=== PATIENT | female | born 1960 | race Caucasian/White ===

== ENCOUNTER → 2021-01-06 | Outpatient (CLI) | payer OTHER ==
--- NOTE | 2021-01-06 21:32 | MR ---
EXAMINATION TYPE: MR knee RT wo con DATE OF EXAM: 01/06/2021 COMPARISON: Radiographs 12/28/2020. HISTORY: Right knee pain x 2 mos, no trauma TECHNIQUE: Multiplanar, multisequence imaging of the right knee is performed without IV contrast. FINDINGS: MEDIAL MENISCUS: Mild mucoid degeneration without discrete tear is seen. LATERAL MENISCUS: Small horizontal oblique tear of the posterior horn. CRUCIATE LIGAMENTS: The anterior and posterior cruciate ligaments are intact and unremarkable. COLLATERAL LIGAMENTS: The medial collateral ligament and lateral collateral ligament complex are inta ct and unremarkable. EXTENSOR MECHANISM: Visualized quadriceps and patellar tendons are intact. EFFUSION: Small to moderate suprapatellar joint effusion. POPLITEAL CYST: No significant popliteal/carlson cyst. TRICOMPARTMENT SPACES: Moderate narrowing of the patellofemoral joint and mild of the medial and late ral compartments CARTILAGE: Moderate to large near full-thickness chondral defect overlying the patella lateral facet. Otherwise small to moderate partial thickness chondral defect overlying the medial and Lateral compartments. BONE MARROW SIGNAL: No focal abnormal marrow signal is appreciated. OTHER: No additional significant abnormality is appreciated. IMPRESSION: Lateral meniscus posterior horn tear. Small to moderate knee joint effusion. Moderate patellofemoral chondromalacia with near full-thickness chondral defect. Otherwise mild to mo derate chondromalacia elsewhere.
== END | disposition home or self-care (01) ==
LOC: RADMRIMAIN 20:21
PROVIDERS: ATTEND Orthopaedic Surgery
DX: S83.281A Other tear of lateral meniscus, current injury, right knee, initial encounter (principal); M22.41 Chondromalacia patellae, right knee; M25.461 Effusion, right knee

== ENCOUNTER → 2021-01-27 | Outpatient (CLI) | payer OTHER ==
[2021-01-27 16:56] LABS: Basophils # (A) 0.1 k/uL (0-0.2); Basophils % (A) 1 %; Eosinophils # (A) 0.2 k/uL (0-0.7); Eosinophils % (A) 3 %; HCT 42.2 % (34.0-46.0); HGB 13.7 gm/dL (11.4-16.0); Lymphocytes % (A) 35 %; MCHC 32.5 g/dL (31.0-37.0); MCV 92.3 fL (80.0-100.0); Mean Platelet Volume 6.2; Monocytes # (A) 0.3 k/uL (0-1.0); Monocytes % (A) 5 %; Neutrophils # (A) 3.1 k/uL (1.3-7.7); Neutrophils % (A) 54 %; Platelet Count 312 k/uL (150-450); RBC 4.57 m/uL (3.80-5.40); RDW 12.9 % (11.5-15.5); WBC 5.8 k/uL (3.8-10.6)
[2021-01-27 17:07] LABS: Potassium 4.3 mmol/L (3.5-5.1)
== END | disposition home or self-care (01) ==
LOC: LABPAT 16:21
PROVIDERS: ATTEND Orthopaedic Surgery
DX: Z01.812 Encounter for preprocedural laboratory examination (principal); M23.91 Unspecified internal derangement of right knee
CPT/HCPCS: 80051; 85025; 93005

== ENCOUNTER 2021-02-05 10:08 | Day surgery (SDC) | payer OTHER ==
--- NOTE | 2021-02-04 13:48 | HP ---
HISTORY AND PHYSICAL CHIEF COMPLAINT: Right knee pain. 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 She notes progressive medial pain along with intermittent giving way worse with weightbearing activities. It bothers her daily. She rates her pain 5/10. She has had multiple previous injections without much relief. She has also tried medications and activity modifications. PAST MEDICAL HISTORY: Significant for hypertension and mitral valve prolapse. PAST SURGICAL HISTORY: Significant for left knee arthroscopy. CURRENT MEDICATIONS: Metoprolol and venlafaxine. ALLERGIES: She has allergies to CODEINE and SULFA. FAMILY HISTORY: Significant for cancer. SOCIAL HISTORY: Significant for social alcohol use. REVIEW OF SYSTEMS: Sixteen-point review of systems otherwise reviewed and is noncontributory. PHYSICAL EXAMINATION: On examination, the patient is approximately 5 feet 9 inches, 190 pounds of endomorphic habitus. HEENT exam is nonfocal. Neck is supple. She has painless passive motion of the right hip. Straight leg raise is negative. Active motion right knee -10 to 110 degrees of flexion. She has mild effusion. She is tender about the medial and lateral joint line. Collaterals are stable, Saroj is negative, Danay's elicits lateral pain. Her distal neurovascular exam appears intact in the right lower extremity. MRI report right knee shows evidence of a lateral meniscal tear along with patellofemoral degenerative changes. There appears to be a chondral defect involving the distal medial femoral condyle. IMPRESSION: 1. Right knee internal derangement with lateral meniscal tear. 2. Right knee possible medial femoral condyle chondral injury. RECOMMENDATIONS: I talked to the patient at length regarding her condition and treatment options. At this point, she is having persistent pain and mechanical symptoms despite previous conservative measures. After thorough discussion of the option, she opts to proceed with surgery. We will plan to proceed with arthroscopic evaluation of the right knee with possible partial lateral meniscectomy in addition to possible medial femoral chondrectomy. We will likely perform that as an outpatient procedure. Risks and benefits were discussed at length in layman's terms. MMODL / IJN: [id number] /
[~2021-02-05 10:08] MED LIST: DEXAMETHASONE SOD PHOSPHATE 4 MG/ML 1 ML VIAL IV ONE; HYDROmorphone 0.5 MG/0.5 ML SYRINGE IVP PRN; LACTATED RINGERS 1,000 ML IV SCH; LIDOCAINE 1% (10MG/ML) FOR IV START INTRADERMA PRN; ONDANSETRON 4 MG/2 ML VIAL IVP ONE
[2021-02-05] MEDS ORDERED: ePHEDrine SULFATE/0.9% NACL/PF 50 MG/5 ML SYRINGE IV ONE (10:53)
[2021-02-05] MEDS ORDERED: fentaNYL (PF) 50 MCG/ML 2 ML AMP ONE (10:53)
[2021-02-05] MEDS ORDERED: PROPOFOL 10 MG/ML 20 ML VIAL IV ONE (10:53)
[2021-02-05] MEDS ORDERED: MIDAZOLAM 2 MG/2 ML VIAL ONE (10:53)
[2021-02-05] MEDS ORDERED: KETOROLAC 15 MG/ML 1 ML VIAL ONE (10:53)
[2021-02-05] MEDS ORDERED: LIDOCAINE 1% INJ 10MG/ML (20 ML MDV) ONE (10:53)
--- NOTE | 2021-02-05 11:40 | P.OP ---
Date of Procedure: 02/05/21 Preoperative Diagnosis: Right knee internal derangement Postoperative Diagnosis: Right knee posterior medial meniscal tear/posterior lateral meniscal tear Procedure(s) Performed: Right knee arthroscopic partial medial meniscectomy/partial lateral meniscectomy Anesthesia: [id number] Surgeon: Tereso Holguin Estimated Blood Loss (ml): 10 Pathology: none sent Condition: stable Disposition: PACU Indications for Procedure: The patient's a 60-year-old female who presents with progressive/persistent right knee pain and mechanical symptoms despite conservative measures. He discussion of the risks and benefits of operative intervention versus continued conservative measures was made with patient. She opted to proceed with surgery. Operative risks to include infection, neurovascular injury, development of blood clots, possible incomplete resolution of symptoms, possible worsening sy mptoms and need for subsequent procedures was discussed. Informed consent was obtained. Operative Findings: As below Description of Procedure: The patient was brought to the operating room, and after induction of general anesthesia examined the right knee. Collaterals were stable, Saroj was negative, and posterior drawer was negative. The right lower extremity was prepped and draped in a normal fashion. A superior lateral portal was made through a 3 mm skin incision superior and lateral to the patella. This was used for outflow. A lateral portal was made through a 5 mm vertical skin incision lateral to the patella tendon above the joint line. Diagnostic arthroscopy was performed. On inspection of the medial compartment, and oblique tear involving the middle one third of the lateral meniscus was noted in the white-white junction. This was debrided back to stable base with straight baskets and a motorized shaver. On inspection of the notch, the anterior cruciate ligament appeared to be intact. On inspection of the lateral compartment, a complex tear involving the posterior horn of the lateral meniscus was noted in the white- white junction. This was debrided back to stable base with straight baskets and a motorized shaver. The remaining lateral meniscus was stable and intact. Grade 2 chondral changes were noted diffusely and lateral compartment. On inspection of the patellofemoral articulation grade 2-3 chondral changes were noted diffusely. The gutters were clear debris. The knee was then thoroughly irrigated. The portals were closed with Steri-Strips. A sterile dressing was applied in addition to a compression stocking. The patient was awoken from general anesthesia and transferred to recovery room in good condition. Blood loss was estimated at 10 mL. No complications were incurred.
[2021-02-05 11:48] VITALS: TEMP 97.5
[2021-02-05] MEDS ORDERED: HYDROcodone/APAP 5-325MG 1 EACH TAB ONE (12:40)
[2021-02-05 13:23] VITALS: RESP 18
[2021-02-05 13:24] VITALS: BP 124/76; PULSE 90
== END 2021-02-05 14:00 | disposition home or self-care (01) ==
LOC: OR 10:08
PROVIDERS: ATTEND Orthopaedic Surgery
DX: S83.241A Other tear of medial meniscus, current injury, right knee, initial encounter (principal); S83.281A Other tear of lateral meniscus, current injury, right knee, initial encounter; I10 Essential (primary) hypertension; I34.1 Nonrheumatic mitral (valve) prolapse; Z98.890 Other specified postprocedural states; Z88.5 Allergy status to narcotic agent; Z88.2 Allergy status to sulfonamides; Z79.899 Other long term (current) drug therapy; Z80.9 Family history of malignant neoplasm, unspecified; X58.XXXA Exposure to other specified factors, initial encounter
CPT/HCPCS: 29880; J2250; J1100; J0690; J2405; J2001; J3010; J1885; J2704

== ENCOUNTER 2023-06-26 14:22 | Emergency (ER) | payer OTHER ==
[2023-06-26 15:06] VITALS: BP 128/78; PULSE 80; RESP 18; TEMP 99
--- NOTE | 2023-06-26 16:43 | ED ---
General Adult HPI - General Chief complaint: Allergic Reaction Stated complaint: Allergic reaction-wasp sting Time Seen by Provider: 06/26/23 17:10 Source: patient, family Mode of arrival: ambulatory Limitations: no limitations - History of Present Illness Initial comments: 62-year-old female who presents the emergency department reporting a bee sting. States that she was stung by a wasp one week ago Monday on her right eyebrow. She had significant swelling around her right eye. She was started on prednisone by an urgent care. She was also started on Keflex. Patient took the steroids and finished them yesterday. She continues to take the antibiotic. States that the swelling had been going down however she woke this morning and had increased swelling in her right cheek and lips. She admits to some reflux. She denies difficulty breathing or shortness of breath. No fevers. No other alleviating, precipitating or modifying factors - Related Data Home Medications Medication Instructions Recorded Confirmed Ascorbic Acid [Vitamin C] 100 mg PO DAILY 02/02/21 02/05/21 Josseline 500 mg PO DAILY 02/02/21 02/05/21 Metoprolol Succinate [Toprol XL] 25 mg PO HS 02/02/21 02/05/21 Venlafaxine HCl 75 mg PO HS 02/02/21 02/05/21 Previous Rx's Medication Instructions Recorded HYDROcodone/APAP 5-325MG [[place] 1 tab PO Q6HR PRN 5 Days #20 tab 02/05/21 5-325] clindamycin HCL [Cleocin] 300 mg PO Q6HR #28 cap 06/26/23 predniSONE [Deltasone] See Rx Instructions .ROUTE 06/26/23 .COMPLEX 6 Days #9 tab Allergies Allergy/AdvReac Type Severity Reaction Status Date / Time bee venom protein (honey bee) Allergy Rash/Hives Verified 06/26/23 15:06 codeine Allergy Nausea & Verified 06/26/23 15:06 Vomiting Sulfa (Sulfonamide Allergy Rash/Hives Verified 06/26/23 15:06 Antibiotics) Review of Systems ROS Statement: Those systems with pertinent positive or pertinent negative responses have been documented in the HPI. ROS Other: All systems not noted in ROS Statement are negative. Past Medical History Additional Past Surgical History / Comment(s): bilateral knee surgeries, multiple times Smoking Status: Never smoker Past Alcohol Use History: Occasional Past Drug Use History: Marijuana General Exam Limitations: no limitations General appearance: alert, in no apparent distress Head exam: Present: atraumatic, normocephalic Eye exam: Present: normal appearance, PERRL, EOMI, other (Sting visible above right eyebrow with no surrounding swelling). Absent: scleral icterus, conjunctival injection, periorbital swelling ENT exam: Present: other (Fullness to the right cheek. Floor of mouth is soft. No tongue swelling. Posterior pharynx is clear. No stridor) Respiratory exam: Present: normal lung sounds bilaterally. Absent: respiratory distress, wheezes, rales, rhonchi, stridor Cardiovascular Exam: Present: regular rate, normal rhythm, normal heart sounds. Absent: systolic murmur, diastolic murmur, rubs, gallop, clicks Neurological exam: Present: alert, oriented X3, CN II-XII intact Psychiatric exam: Present: normal affect, normal mood Course Vital Signs 06/26/23 14:59 Temperature 99.0 F Pulse Rate 80 Respiratory 18 Rate Blood Pressure 128/78 Medical Decision Making - Medical Decision Making Was pt. sent in by a medical professional or institution (, PA, DIRECTOR CARDIOLOGY, urgent care, hospital, or senior care...) When possible be specific @ -No Did you speak to anyone other than the patient for history (EMS, parent, family, police, friend...)? What history was obtained from this source @ -I spoke with the patient's regards to her symptoms Did you review nursing and triage notes (agree or disagree)? Why? @ -I reviewed and agree with nursing and triage notes Were old charts reviewed (outside hosp., previous admission, EMS record, old EKG, old radiological studies, urgent care reports/EKG's, senior care records)? Report findings @ -No old charts were reviewed Differential Diagnosis (chest pain, altered mental status, abdominal pain women, abdominal pain men, vaginal bleeding, weakness, fever, dyspnea, syncope, headache, dizziness, GI bleed, back pain, seizure, CVA, palpatations, mental health, musculoskeletal)? @ -Dental infection, Arvind's, bee sting, ALLERGIC reaction, anaphylaxis EKG interpreted by me (3pts min.). @ -Not completed X-rays interpreted by me (1pt min.). @ -None done CT interpreted by me (1pt min.). @ -None done U/S interpreted by me (1pt. min.). @ -None done What testing was considered but not performed or refused? (CT, X-rays, U/S, labs)? Why? @ -None What meds were considered but not given or refused? Why? @ -None Did you discuss the management of the patient with other professionals (professionals i.e. Dr., PA, DIRECTOR CARDIOLOGY, lab, RT, psych nurse, social work lecturer, trial lawyer, teacher, medical officer, block and case maker)? Give summary @ -No Was smoking cessation discussed for >3mins.? @ -No Was critical care preformed (if so, how long)? @ -No Were there social determinants of health that impacted care today? How? (Homelessness, low income, unemployed, alcoholism, drug addiction, transportation, low edu. Level, literacy, decrease access to med. care, detention, rehab)? @ -No Was there de-escalation of care discussed even if they declined (Discuss DNR or withdrawal of care, Hospice)? DNR status @ -No What co-morbidities impacted this encounter? (DM, HTN, Smoking, COPD, CAD, Cancer, CVA, ARF, Chemo, Hep., AIDS, mental health diagnosis, sleep apnea, morbid obesity)? @ -None Was patient admitted / discharged? Hospital course, mention meds given and route, prescriptions, significant lab abnormalities, going to OR and other pertinent info. @ -Upon arrival patient was placed into room 30. A thorough history and physical exam is performed. Patient has notable swelling to the right cheek. No signs of infection. No dentalgia. Suspected that the swelling that was around the patient's eye has now settled in the cheek. Patient did discontinue steroids yesterday with return of symptoms and therefore will be started again on antihistamines and steroids. Will take Benadryl every 6 hours. She is given a dose of steroids in the emergency department and discharged home on a 6 day tapering course. She will follow up with her primary care doctor for further evaluation return for any new or worsening symptoms. Patient was agreeable to this plan and she was discharged in stable condition Undiagnosed new problem with uncertain prognosis? @ -Yes Drug Therapy requiring intensive monitoring for toxicity (Heparin, Nitro, Insulin, Cardizem)? @ -No Were any procedures done? @ -No Diagnosis/symptom? @ -Acute right cheek swelling, suspected ALLERGIC reaction Acute, or Chronic, or Acute on Chronic? @ -Acute Uncomplicated (without systemic symptoms) or Complicated (systemic symptoms)? @ -Complicated Side effects of treatment? @ -No Exacerbation, Progression, or Severe Exacerbation? @ -No Poses a threat to life or bodily function? How? (Chest pain, [place], [place], pneumonia, PE, COPD, DKA, ARF, appy, cholecystitis, CVA, Diverticulitis, Homicidal, Suicidal, threat to staff... and all critical care pts) @ -No Disposition Clinical Impression: Allergic reaction Disposition: HOME SELF-CARE Condition: Stable Instructions (If sedation given, give patient instructions): Insect Bite or Sting (ED), General Allergic Reaction (ED) Additional Instructions: Take either Zyrtec/Claritin/Rhonda in the AM and Benadryl in the evening. Stop taking the Medrol dose pack. Begin the course of steroids that I have prescribed. Finish out the Keflex. If your swelling persists after the steroids have finished, start the clindamycin. Follow up with your doctor and return for any new or worsening symptoms Prescriptions: clindamycin HCL [Cleocin] 300 mg PO Q6HR #28 cap predniSONE [Deltasone] See Rx Instructions .ROUTE .COMPLEX 6 Days #9 tab Is patient prescribed a controlled substance at d/c from ED?: No Referrals: Chelle Burch III, MD [Primary Care Provider] - 1-2 days Time of Disposition: 17:46
[2023-06-26] MEDS ORDERED: methylPREDNISolone SOD SUCCI 125 MG/2 ML VIAL IM ONE (17:30)
[2023-06-26] MEDS ORDERED: diphenhydrAMINE 50 MG CAP PO STA (17:30)
== END 2023-06-26 18:07 | disposition home or self-care (01) ==
LOC: EC 14:22
DX: T63.461A Toxic effect of venom of wasps, accidental (unintentional), initial encounter (principal); F12.90 Cannabis use, unspecified, uncomplicated; Z88.5 Allergy status to narcotic agent; Z88.2 Allergy status to sulfonamides; Z91.030 Bee allergy status
CPT/HCPCS: 99283; 96372; J2930

== ENCOUNTER → 2023-10-24 | Outpatient (CLI) | payer OTHER ==
[2023-10-24 15:58] LABS: ALT 23 U/L (8-44); AST 15 U/L (13-35); Albumin 4.6 g/dL (3.8-4.9); Albumin/Globulin Ratio 2.19 Ratio (1.60-3.17); Alkaline Phosphatase 60 U/L (41-126); Blood Urea Nitrogen 20.4 mg/dL (9.0-27.0); Carbon Dioxide 27.4 mmol/L (21.6-31.8); Chloride 105 mmol/L (96-109); Chol/HDL Ratio 3.25 Ratio; Globulin 2.1 g/dL (1.6-3.3); Glucose 90 mg/dL (70-110); LDL Cholesterol,Calculated 101.2 mg/dL (0.0-131.0); Potassium 5.1 mmol/L (3.5-5.5); Sodium 143 mmol/L (135-145); Total Bilirubin 0.6 mg/dL (0.3-1.2); Total Protein 6.7 g/dL (6.2-8.2)
[2023-10-24 16:01] LABS: Basophils # (A) 0.13 X 10*3/uL (0.00-0.10); Basophils % (A) 1.7 %; Eosinophils # (A) 0.39 X 10*3/uL (0.04-0.35); Eosinophils % (A) 5.2 %; HCT 42.4 % (37.2-46.3); HGB 13.6 g/dL (12.0-15.0); Lymphocytes # (A) 2.92 X 10*3/uL (0.90-5.00); Lymphocytes % (A) 38.7 %; MCH 30.6 pg (27.0-32.0); MCHC 32.1 g/dL (32.0-37.0); MCV 95.3 FL (80.0-97.0); Mean Platelet Volume 8.4 FL (9.5-12.2); Monocytes # (A) 0.36 X 10*3/uL (0.20-1.00); Monocytes % (A) 4.8 %; NRBC Per 100 WBC 0 X 10*3/uL (0.00-0.01); Neutrophils # (A) 3.72 X 10*3/uL (1.80-7.70); Neutrophils % (A) 49.3 %; Platelet Count 460 X 10*3/uL (140-440); RBC 4.45 X 10*6/uL (4.10-5.20); RDW 12.9 % (11.5-14.5); WBC 7.54 X 10*3/uL (4.50-10.00)
== END | disposition home or self-care (01) ==
LOC: LABWHC1 08:15
PROVIDERS: ATTEND Family Medicine
DX: Z00.00 Encounter for general adult medical examination without abnormal findings (principal); Z13.220 Encounter for screening for lipoid disorders; Z13.1 Encounter for screening for diabetes mellitus
CPT/HCPCS: 36415; 80053; 80061; 83036; 85025

== ENCOUNTER → 2023-11-02 | Outpatient (CLI) | payer OTHER ==
--- NOTE | 2023-11-02 09:39 | CT ---
EXAMINATION TYPE: CT angio chest DATE OF EXAM: 11/02/2023 COMPARISON: NONE HISTORY: thoracic aortic aneurysm CT DLP: 514.70 mGycm. Automated Exposure Control for Dose Reduction was Utilized. CONTRAST: CTA scan of the thorax is performed without and with IV Contrast, patient injected with 100 mL of Iso jean claude 370, aneurysm protocol. 3D reconstructed images are created on an independent workstation and r eviewed. FINDINGS: LUNGS: Patchy groundglass opacities in the central inferior right upper lobe axial image 26 are noted . Additional focal ground glass opacity in the inferior lingula axial image 47. There is no pleural effusion or pneumothorax seen. The tracheobronchial tree is patent. MEDIASTINUM: Satisfactory enhancement of the central pulmonary arteries. Noncontrast images show no s uspicious hyperdense material to suggest intramural hematoma. Aorta measures 4.1 cm at the root. Asce nding aorta measures 4.4 cm axial image 69. Normal three-vessel origin from the aorta is seen. Aorta measures 3.5 cm in diameter at level of the arch. No aneurysmal extension into the the ascending thor acic aorta. Slight tortuous course is seen.. There are no greater than 1 cm hilar or mediastinal lym ph nodes. No cardiomegaly or pericardial effusion is seen. OTHER: No additional significant abnormality is seen. IMPRESSION: 1. Ascending aortic aneurysm up to 4.4 cm. 2. Patchy groundglass opacities in the inferior right upper lobe and inferior lingula could reflect d eveloping pneumonic infiltrates in the appropriate clinical setting. Correlate clinically.
== END | disposition home or self-care (01) ==
LOC: RADCTMAIN 08:52
PROVIDERS: ATTEND Family Medicine
DX: I71.21 Aneurysm of the ascending aorta, without rupture (principal); R91.8 Other nonspecific abnormal finding of lung field
CPT/HCPCS: 71275; Q9967

== ENCOUNTER 2023-11-15 17:56 | Emergency (ER) | payer OTHER ==
--- NOTE | 2023-11-15 19:03 | ED ---
Female Urogenital HPI - General Source: patient, family, RN notes reviewed <Rosi Roberts - Last Filed: 11/15/23 19:01> <Clemencia Lutz - Last Filed: 11/16/23 01:29> - General Stated complaint: UTI Time Seen by Provider: 11/15/23 19:01 - History of Present Illness Initial comments: Patient is a 62-year-old female presented ER with chief complaint of UTI. Freda has been experiencing this UTI for about 5 weeks and has tried many oral antibiotics. Patient states today she started to have back pain with nausea and vomiting. She also endorses chills. (Rosi Roberts) 62-year-old female presents to the emergency department for evaluation of urinary frequency. Patient states that she has been having dysuria and urinary frequency for around 5 weeks and has been on multiple courses of antibiotics. Patient states that she is currently on doxycycline. She denies any dysuria at this time but admits to urinary frequency. She denies hematuria. She notes that today she started to have right-sided flank pain with associated nausea and vomiting. She does report a history of kidney stones. She denies fever. She states that she last had her urine checked around one week ago which did not show signs of infection according to the patient but she was started on antibiotics as she was symptomatic. (Clemencia Lutz) - Related Data Home Medications Medication Instructions Recorded Confirmed Ascorbic Acid [Vitamin C] 100 mg PO DAILY 02/02/21 02/05/21 Josseline 500 mg PO DAILY 02/02/21 02/05/21 Metoprolol Succinate [Toprol XL] 25 mg PO HS 02/02/21 02/05/21 Venlafaxine HCl 75 mg PO HS 02/02/21 02/05/21 Previous Rx's Medication Instructions Recorded HYDROcodone/APAP 5-325MG [[place] 1 tab PO Q6HR PRN 5 Days #20 tab 02/05/21 5-325] clindamycin HCL [Cleocin] 300 mg PO Q6HR #28 cap 06/26/23 predniSONE [Deltasone] See Rx Instructions .ROUTE 06/26/23 .COMPLEX 6 Days #9 tab HYDROcodone/APAP 5-325MG [[place] 1 tab PO Q6HR PRN 3 Days #12 tab 11/15/23 5-325] Ondansetron Odt [Zofran Odt] 4 mg PO Q8HR PRN #10 tab 11/15/23 Tamsulosin [Flomax] 0.4 mg PO DAILY #7 cap 11/15/23 Allergies Allergy/AdvReac Type Severity Reaction Status Date / Time bee venom protein (honey bee) Allergy Rash/Hives Verified 11/15/23 19:07 codeine Allergy Nausea & Verified 11/15/23 19:07 Vomiting Sulfa (Sulfonamide Allergy Rash/Hives Verified 11/15/23 19:07 Antibiotics) Review of Systems ROS Other: All systems not noted in ROS Statement are negative. <Rosi Roberts - Last Filed: 11/15/23 19:01> ROS Other: All systems not noted in ROS Statement are negative. <Clemencia Lutz - Last Filed: 11/16/23 01:29> ROS Statement: Those systems with pertinent positive or pertinent negative responses have been documented in the HPI. Past Medical History Additional Past Surgical History / Comment(s): bilateral knee surgeries, multiple times Smoking Status: Never smoker Past Alcohol Use History: Occasional Past Drug Use History: Marijuana <Rosi Roberts - Last Filed: 11/15/23 19:01> General Exam <Rosi Roberts - Last Filed: 11/15/23 19:01> Limitations: no limitations General appearance: alert, in no apparent distress Head exam: Present: atraumatic, normocephalic, normal inspection Eye exam: Present: normal appearance, PERRL, EOMI. Absent: scleral icterus, conjunctival injection, periorbital swelling ENT exam: Present: normal exam, mucous membranes moist Neck exam: Present: normal inspection. Absent: tenderness, meningismus, lymphadenopathy Respiratory exam: Present: normal lung sounds bilaterally. Absent: respiratory distress, wheezes, rales, rhonchi, stridor Cardiovascular Exam: Present: regular rate, normal rhythm, normal heart sounds. Absent: systolic murmur, diastolic murmur, rubs, gallop, clicks GI/Abdominal exam: Present: soft, normal bowel sounds. Absent: distended, tenderness, guarding, rebound, rigid Extremities exam: Present: normal inspection, full ROM, normal capillary refill. Absent: tenderness, pedal edema, joint swelling, calf tenderness Back exam: Present: normal inspection. Absent: CVA tenderness (R), CVA tendern ess (L) Neurological exam: Present: alert, oriented X3 Psychiatric exam: Present: normal affect, normal mood Skin exam: Present: warm, dry, intact, normal color. Absent: rash <Clemencia Lutz - Last Filed: 11/16/23 01:29> - General Exam Comments Initial Comments: Visual Physical Exam Vital signs reviewed General: Well-appearing, nontoxic, no acute distress. Head: Normocephalic, atraumatic Eyes: PERRLA, EOMI ENT: Airway patent Chest: Nonlabored breathing Skin: No visual rash, normal skin tone Neuro: Alert and oriented 3 Musculoskeletal: No gross abnormalities (Rosi Roberts) Course Vital Signs 11/15/23 11/15/23 19:02 23:54 Temperature 98.1 F 98.3 F Pulse Rate 74 72 Respiratory 18 16 Rate Blood Pressure 141/94 133/88 O2 Sat by Pulse 99 99 Oximetry Medical Decision Making <Rosi Roberts - Last Filed: 11/15/23 19:01> - Lab Data Result diagrams: 11/15/23 19:08 11/15/23 19:08 <Clemencia Lutz - Last Filed: 11/16/23 01:29> - Medical Decision Making I performed the quick note portion of the exam. Electronically signed by Rosi Roberts PA-C (Rosi Roberts) Was pt. sent in by a medical professional or institution (YENNY Manuel, REFINISH TECHNICIAN, urgent care, hospital, or custodial...) When possible be specific @ -No Did you speak to anyone other than the patient for history (EMS, parent, family, police, friend...)? What history was obtained from this source @ -No Did you review nursing and triage notes (agree or disagree)? Why? @ -I reviewed and agree with nursing and triage notes Were old charts reviewed (outside hosp., previous admission, EMS record, old EKG, old radiological studies, urgent care reports/EKG's, custodial records)? Report findings @ -No old charts were reviewed Differential Diagnosis (chest pain, altered mental status, abdominal pain women, abdominal pain men, vaginal bleeding, weakness, fever, dyspnea, syncope, headache, dizziness, GI bleed, back pain, seizure, CVA, palpatations, mental health, musculoskeletal)? @ -Differential Back Pain: Strain, zoster, cauda equina syndrome, epidural abscess, vertebral osteomyelitis, discitis, fracture, subluxation, disc herniation, DJD, spinal stenosis, dissection, AAA, pancreatitis, peptic ulcer disease, pyelonephritis, kidney stone, this is not meant to be an all-inclusive list. EKG interpreted by me (3pts min.). @ -None X-rays interpreted by me (1pt min.). @ -None done CT interpreted by me (1pt min.). @ -CT abdomen and pelvis shows a 4 mm obstructing stone in the distal right ureter with moderate hydroureter nephrosis U/S interpreted by me (1pt. min.). @ -None done What testing was considered but not performed or refused? (CT, X-rays, U/S, labs)? Why? @ -None What meds were considered but not given or refused? Why? @ -None Did you discuss the management of the patient with other professionals (professionals i.e. , PA, REFINISH TECHNICIAN, lab, RT, psych nurse, 7th grade social studies teacher, report developer, teacher, credit administration officer, community case manager)? Give summary @ -No Was smoking cessation discussed for >3mins.? @ -No Was critical care preformed (if so, how long)? @ -No Were there social determinants of health that impacted care today? How? (Homelessness, low income, unemployed, alcoholism, drug addiction, transportation, low edu. Level, literacy, decrease access to med. care, intermediate, rehab)? @ -No Was there de-escalation of care discussed even if they declined (Discuss DNR or withdrawal of care, Hospice)? DNR status @ -No What co-morbidities impacted this encounter? (DM, HTN, Smoking, COPD, CAD, Cancer, CVA, ARF, Chemo, Hep., AIDS, mental health diagnosis, sleep apnea, morbid obesity)? @ -None Was patient admitted / discharged? Hospital course, mention meds given and route, prescriptions, significant lab abnormalities, going to OR and other pertinent info. @ -Discharged. Patient presented to the emergency department chief complaint of right-sided flank pain and urinary frequency. Patient has a history of nephrolithiasis. Patient is well-appearing, vital signs stable, afebrile. Negative CVA tenderness bilaterally. Laboratory studies obtained. CBC shows normal WBC at 9.3, hemoglobin 13.3; CMP shows sodium 140, potassium 4.5, creatinine 0.74; CMP shows cloudy urine, small blood, negative nitrite, negative leukocyte esterase, 18 RBCs, [address] abdomen and pelvis obtained shows 4 mm obstructing stone in the distal ureter with moderate right hydroureteronephrosis. Patient is resting comfortably at this time and not needing any pain medication. She was treated with nausea medicine which improved her symptoms. Patient given a starter pack for Zofran and Tylenol threes. Prescription sent to patient's pharmacy for pain medication, Zofran, Flomax. Patient will pick this up in the morning when the pharmacy opens. She will follow up with urology. Patient has a agreeable with discharge plan. Patient stable at time of discharge. Case discussed Undiagnosed new problem with uncertain prognosis? @ -No Drug Therapy requiring intensive monitoring for toxicity (Heparin, Nitro, Insulin, Cardizem)? @ -No Were any procedures done? @ -No Diagnosis/symptom? @ -kidney stone Acute, or Chronic, or Acute on Chronic? @ -acute Uncomplicated (without systemic symptoms) or Complicated (systemic symptoms)? @ -uncomplicated Side effects of treatment? @ -No Exacerbation, Progression, or Severe Exacerbation? @ -No Poses a threat to life or bodily function? How? (Chest pain, USA, OR, pneumonia, PE, COPD, DKA, ARF, appy, cholecystitis, CVA, Diverticulitis, Homicidal, Suicidal, threat to staff... and all critical care pts) @ -No (Clemencia Lutz) - Lab Data Lab Results 11/15/23 11/15/23 11/15/23 Range/Units 19:08 19:08 19:08 WBC 9.3 (3.8-10.6) k/uL RBC 4.26 (3.80-5.40) m/uL Hgb 13.3 (11.4-16.0) gm/dL Hct 40.1 (34.0-46.0) % MCV 94.0 (80.0-100.0) fL MCH 31.2 (25.0-35.0) pg MCHC 33.2 (31.0-37.0) g/dL RDW 13.2 (11.5-15.5) % Plt Count 351 (150-450) k/uL MPV 6.7 Sodium 140 (137-145) mmol/L Potassium 4.5 (3.5-5.1) mmol/L Chloride 103 (98-107) mmol/L Carbon Dioxide 26 (22-30) mmol/L Anion Gap 11 mmol/L BUN 22 H (7-17) mg/dL Creatinine 0.74 (0.52-1.04) mg/dL Est GFR (CKD-EPI)AfAm >90 (>60 ml/min/1.73 sqM) Est GFR (CKD-EPI)NonAf 89 (>60 ml/min/1.73 sqM) Glucose 115 H (74-99) mg/dL Plasma Lactic Acid Isael (0.7-2.0) mmol/L Calcium 10.2 (8.4-10.2) mg/dL Total Bilirubin 0.4 (0.2-1.3) mg/dL AST 23 (14-36) U/L ALT 18 (4-34) U/L Alkaline Phosphatase 61 (38-126) U/L Total Protein 7.2 (6.3-8.2) g/dL Albumin 4.6 (3.5-5.0) g/dL Urine Color Dark Yellow Urine Appearance Slightly Cloudy H (Clear) Urine pH 6.0 (5.0-8.0) Ur Specific [place] 1.020 (1.001-1.035) Urine Protein Negative (Negative) Urine Glucose (UA) Negative (Negative) Urine Ketones 2+ (Negative) Urine Blood Small (Negative) Urine Nitrite Negative (Negative) Urine Bilirubin Negative (Negative) Urine Urobilinogen <2.0 (<2.0) mg/dL Ur Leukocyte Esterase Negative (Negative) Urine RBC 18 H (0-5) /hpf Urine WBC 4 (0-5) /hpf Urine Bacteria Rare H (None) /hpf Urine Mucus Rare H (None) /hpf 11/15/23 Range/Units 19:08 WBC (3.8-10.6) k/uL RBC (3.80-5.40) m/uL Hgb (11.4-16.0) gm/dL Hct (34.0-46.0) % MCV (80.0-100.0) fL MCH (25.0-35.0) pg MCHC (31.0-37.0) g/dL RDW (11.5-15.5) % Plt Count (150-450) k/uL MPV Sodium (137-145) mmol/L Potassium (3.5-5.1) mmol/L Chloride (98-107) mmol/L Carbon Dioxide (22-30) mmol/L Anion Gap mmol/L BUN (7-17) mg/dL Creatinine (0.52-1.04) mg/dL Est GFR (CKD-EPI)AfAm (>60 ml/min/1.73 sqM) Est GFR (CKD-EPI)NonAf (>60 ml/min/1.73 sqM) Glucose (74-99) mg/dL Plasma Lactic Acid Isael 0.8 (0.7-2.0) mmol/L Calcium (8.4-10.2) mg/dL Total Bilirubin (0.2-1.3) mg/dL AST (14-36) U/L ALT (4-34) U/L Alkaline Phosphatase (38-126) U/L Total Protein (6.3-8.2) g/dL Albumin (3.5-5.0) g/dL Urine Color Urine Appearance (Clear) Urine pH (5.0-8.0) Ur Specific [place] (1.001-1.035) Urine Protein (Negative) Urine Glucose (UA) (Negative) Urine Ketones (Negative) Urine Blood (Negative) Urine Nitrite (Negative) Urine Bilirubin (Negative) Urine Urobilinogen (<2.0) mg/dL Ur Leukocyte Esterase (Negative) Urine RBC (0-5) /hpf Urine WBC (0-5) /hpf Urine Bacteria (None) /hpf Urine Mucus (None) /hpf Disposition <Rosi Roberts - Last Filed: 11/15/23 19:01> Is patient prescribed a controlled substance at d/c from ED?: Yes When asked, does pt state using other controlled substances?: No If prescribed controlled substance>3 days was MAPS reviewed?: Prescribed <3 Days <Clemencia Lutz - Last Filed: 11/16/23 01:29> Clinical Impression: Nephrolithiasis Disposition: HOME SELF-CARE Condition: Stable Instructions (If sedation given, give patient instructions): Kidney Stones (ED) Additional Instructions: Please follow up with urology and your primary care provider. Return to the emergency department for new or worsening symptoms. Prescriptions: Tamsulosin [Flomax] 0.4 mg PO DAILY #7 cap HYDROcodone/APAP 5-325MG [[place] 5-325] 1 tab PO Q6HR PRN 3 Days #12 tab PRN Reason: Pain Ondansetron Odt [Zofran Odt] 4 mg PO Q8HR PRN #10 tab PRN Reason: Nausea Referrals: Florentin Bazan MD [Primary Care Provider] - 1-2 days César Chowdhury MD [STAFF PHYSICIAN] - 1-2 days
[2023-11-15 20:20] LABS: HCT 40.1 % (34.0-46.0); HGB 13.3 gm/dL (11.4-16.0); MCH 31.2 pg (25.0-35.0); MCHC 33.2 g/dL (31.0-37.0); Mean Platelet Volume 6.7; Platelet Count 351 k/uL (150-450); RBC 4.26 m/uL (3.80-5.40); RDW 13.2 % (11.5-15.5); WBC 9.3 k/uL (3.8-10.6)
[2023-11-15 20:37] LABS: ALT 18 U/L (4-34); AST 23 U/L (14-36); African American GFR (CKD) >90 (>60 ml/min/1.73 sqM); Albumin 4.6 g/dL (3.5-5.0); Alkaline Phosphatase 61 U/L (38-126); Anion Gap 11 mmol/L; Blood Urea Nitrogen 22 mg/dL (7-17); Calcium 10.2 mg/dL (8.4-10.2); Carbon Dioxide 26 mmol/L (22-30); Chloride 103 mmol/L (98-107); Glucose 115 mg/dL (74-99); Non-African American GFR(CKD) 89 (>60 ml/min/1.73 sqM); Potassium 4.5 mmol/L (3.5-5.1); Sodium 140 mmol/L (137-145); Total Bilirubin 0.4 mg/dL (0.2-1.3); Total Protein 7.2 g/dL (6.3-8.2)
[2023-11-15 21:28] LABS: Appearance,Urine Slightly Cloudy (Clear); Color,Urine Dark Yellow
[2023-11-15 21:29] LABS: Bilirubin,Urine Negative (Negative); Blood,Urine Small (Negative); Glucose,Urine (UA) Negative (Negative); Ketones,Urine 2+ (Negative); Leukocyte Esterase,Urine Negative (Negative); Nitrite,Urine Negative (Negative); Protein,Urine Negative (Negative); Urobilinogen,Urine <2.0 mg/dL (<2.0)
--- NOTE | 2023-11-15 22:52 | CT ---
EXAMINATION TYPE: CT abdomen pelvis wo con CT DLP: 542.6 mGycm, Automated exposure control for dose reduction was used. DATE OF EXAM: 11/15/2023 8:49 PM COMPARISON: CLINICAL INDICATION:Female, 62 years old with history of Rt flank pain, hx stones; Rt flank pain, hx stones TECHNIQUE: Axial CT of the abdomen and pelvis. Sagittal and coronal reformats were created on a [employer] workstation. Contrast used: mL of , (none if empty) Oral contrast used: without Oral Contrast (none if empty) FINDINGS: LOWER CHEST: Mild bibasilar scarring or atelectasis. Small irregular density in the inferior lingula, likely the same. No pleural effusion. Heart size upper normal. No pericardial effusion. There is a m oderate size sliding hiatal hernia. ABDOMEN Exam is limited by lack of contrast. LIVER: Tiny hypodensity in the right lobe inferiorly image 50, statistically likely benign in absence of a cancer history. Otherwise unremarkable. GALLBLADDER AND BILE DUCTS: Unremarkable. PANCREAS: Unremarkable. SPLEEN: Unremarkable. ADRENAL GLANDS: Unremarkable. KIDNEYS AND URETERS: Left interpolar calculus 8 mm, upper pole calculi 2 mm and 1 mm. Right interpola r calculus is punctate. There is perinephric stranding on the right, and moderate right hydroureteron ephrosis secondary to a 4 mm calculus in the distal right ureter a few millimeters proximal to the bl adder. PELVIS BLADDER: Unremarkable REPRODUCTIVE: Uterus and adnexal regions appear grossly unremarkable, though not well assessed by CT. Ovaries not clearly seen. ABDOMEN & PELVIS STOMACH AND BOWEL: Nondistended, no evidence of obstruction. Appendix has radiodense content througho ut, no evidence of appendicitis. There is fatty infiltration at the ileocecal valve. Moderate stool t hroughout the colon, greatest proximally. There may be some scattered diverticula but no evidence of diverticulitis. PERITONEUM/RETROPERITONEUM: No evidence of pneumoperitoneum or free fluid. VASCULATURE: Mild atherosclerotic calcifications are present throughout the abdominal aorta and its b ranches. No evidence of aortic aneurysm. LYMPH NODES: No gross evidence for lymphadenopathy. SOFT TISSUE/ABDOMINAL WALL: Tiny fat-containing umbilical hernia. MUSCULOSKELETAL: No acute osseous abnormalities. Mild disc degeneration changes are present throughou t the thoracolumbar spine. There is slight scoliotic curvature of the lumbar spine with slight rotar y component. IMPRESSION: 1. Positive for moderate right hydroureteronephrosis secondary to a 4 mm distal ureteral calculus. 2. Additional intrarenal calculi, larger and more numerous on the left. 3. Moderate sliding hiatal hernia.
[2023-11-15 23:23] LABS: RBC,Urine 18 /hpf (0-5); WBC,Urine 4 /hpf (0-5)
[2023-11-15 23:25] LABS: Bacteria,Urine Rare /hpf; Mucus,Urine Rare /hpf
[2023-11-15] MEDS ORDERED: ONDANSETRON 4 MG ODT STARTER PACK 2 TAB BTL PO STA (23:36)
[2023-11-15] MEDS: ACET/COD 300 MG/30 MG STARTER PACK 6 TAB BTL PO STA ×2 (23:51→23:52)
[2023-11-16 00:09] VITALS: BP 133/88; PULSE 72; RESP 16; TEMP 98.3
== END 2023-11-15 23:55 | disposition home or self-care (01) ==
LOC: EC 17:56
DX: N13.2 Hydronephrosis with renal and ureteral calculous obstruction (principal); F12.90 Cannabis use, unspecified, uncomplicated; Z88.2 Allergy status to sulfonamides; Z88.5 Allergy status to narcotic agent; Z91.030 Bee allergy status
CPT/HCPCS: 36415; 80053; 83605; 85027; 81001; 74176; 99285; S0119

== ENCOUNTER → 2024-01-02 | Outpatient (CLI) | payer OTHER ==
--- NOTE | 2024-01-02 12:58 | US ---
EXAMINATION TYPE: US kidneys/renal and bladder DATE OF EXAM: 01/02/2024 COMPARISON: CT 11/15/2023 CLINICAL INDICATION: Female, 63 years old with history of N20.2 CALCULUS OF KIDNEY WITH CALCULUS OF U RETER; Patient states recent Hx BL renal stones with right lithotripsy. Patient denies any signs or s ymptoms EXAM MEASUREMENTS: Right Kidney: 11.2 x 4.4 x 5.9 cm Left Kidney: 10.4 x 6.3 x 5.1 cm Post Void Residual Volume: NA mL Right Kidney: WNL Left Kidney: Multiple stones seen Bladder: ? Debris at dependant portion Bilateral Jets seen: Yes Normal Post Void Residual: NA There is no evidence for hydronephrosis at this point in time. No masses are identified. The urinar y bladder is anechoic. Bilateral ureteral jets are seen. IMPRESSION: Cholelithiasis left kidney without evidence for hydronephrosis. Dependent debris within the urinary b ladder.
== END | disposition home or self-care (01) ==
LOC: RADUSWWP 12:25
DX: N20.2 Calculus of kidney with calculus of ureter (principal); K80.20 Calculus of gallbladder without cholecystitis without obstruction
CPT/HCPCS: 76770

== ENCOUNTER → 2024-05-07 | Outpatient (CLI) | payer OTHER ==
--- NOTE | 2024-05-07 12:06 | CT ---
EXAMINATION TYPE: CT angio chest CT DLP: 481.3 mGycm, Automated exposure control for dose reduction was used. DATE OF EXAM: 05/07/2024 9:25 AM COMPARISON: CTA chest 11/02/2023. CLINICAL INDICATION:Female, 63 years old with history of I71.20 thoracic aneurysm; Thoracic Aneurysm TECHNIQUE/CONTRAST: CTA scan of the thorax is performed without and with IV Contrast, patient injected with 100 ml mL of Isovue 370, thoracic aneurysm protocol. MIP and 3-D images are created and reviewed. FINDINGS: LUNGS: Resolution of previously seen patchy groundglass opacities in the central inferior right upper lobe. Resolution of previously seen focal ground glass opacity in the inferior lingula. Few stable s cattered pulmonary micronodules including a right upper lobe 3 mm nodule (series 4, image 22). There is no pleural effusion or pneumothorax seen. The tracheobronchial tree is patent. MEDIASTINUM: Satisfactory enhancement of the central pulmonary arteries. Noncontrast images show no s uspicious hyperdense material to suggest intramural hematoma. Aorta measures 4.1 cm at the root. Asce nding aorta measures 4.3 cm which is stable. Normal three-vessel origin from the aorta is seen. Aorta measures 3.4 cm in diameter at level of the arch which is stable. No aneurysmal extension into the t he descending thoracic aorta. No thoracic aortic dissection. Slight tortuous course is again seen. T here are no greater than 1 cm hilar or mediastinal lymph nodes. No cardiomegaly or pericardial effu dhaval is seen. OTHER: Small hiatal hernia. No acute osseous abnormality. IMPRESSION: Stable ascending aortic aneurysm up to 4.3 cm. No evidence for intramural hematoma or dissection.
== END | disposition home or self-care (01) ==
LOC: RADCTMAIN 07:55
PROVIDERS: ATTEND Family Medicine
DX: I71.21 Aneurysm of the ascending aorta, without rupture (principal); I71.20 Thoracic aortic aneurysm, without rupture, unspecified
CPT/HCPCS: 71275; Q9967

== ENCOUNTER → 2024-10-16 | Outpatient (CLI) | payer OTHER ==
--- NOTE | 2024-10-23 14:39 | MM ---
Reason for Exam: Screening (asymptomatic). Last mammogram was performed 4 year(s) and 5 month(s) ago. Patient History: Menarche at age 18. Patient has no children. Postmenopausal. Patient used Hormonal Contraceptives for 32 years. Risk Values: Ania 5 year model risk: 1.5%. NCI Lifetime model risk: 7.2%. Prior Study Comparison: 02/20/2018 Bilateral Screening Mammogram, [place]. 05/11/2020 Bilateral Screening Mammogram, [place]. 05/13/2020 Left Diagnostic Mammogram, [place]. Tissue Density: The breasts are heterogeneously dense, which may obscure small masses. Findings: Analyzed By CAD. There is no suspicious group of microcalcifications or new suspicious mass in either breast. Overall Assessment: Negative, BI-RAD 1 Management: Screening Mammogram of both breasts in 1 year. . Patient should continue monthly self-breast exams. A clinical breast exam by your physician is recommended on an annual basis. This exam should not preclude additional follow-up of suspicious palpable abnormalities. Note on Ania scores and lifetime risk: 1. A Ania score greater than 3% is considered moderate risk. If this is the case, consider specialist referral to assess eligibility for a risk reducing agent. 2. If overall lifetime risk for the development of breast cancer is 20% or higher, the patient may qualify for future screening with alternating mammogram and breast MRI. [facility], , 10/23/2024 2:36 PM. Electronically signed and approved by: Zain Leigh M.D. Radiologist
== END | disposition home or self-care (01) ==
LOC: RADMAMWWP 08:12
PROVIDERS: ATTEND Family Medicine
DX: Z12.31 Encounter for screening mammogram for malignant neoplasm of breast (principal); Z78.0 Asymptomatic menopausal state; R92.333 Mammographic heterogeneous density, bilateral breasts
CPT/HCPCS: 77067

== ENCOUNTER → 2025-05-09 | Outpatient (CLI) | payer OTHER ==
--- NOTE | 2025-05-09 15:04 | CT ---
EXAMINATION TYPE: CT angio chest DATE OF EXAM: 05/09/2025 COMPARISON: 05/07/2024 CLINICAL INDICATION: Female, 64 years old with history of I71.20 THORACIC AORTIC ANEURYSM; PHH, THORA CIC AORTIC ANEURYSM. PRIOR ON PACS. TECHNIQUE: CTA scan of the thorax is performed without and with IV Contrast, patient injected with 100ml mL of I sovue 370, pulmonary embolism protocol. MIP images are created and reviewed. CT DLP: [address] CTDI: mGy Automated exposure control for dose reduction was used. FINDINGS: The ascending thoracic aorta is dilated to 4.3 cm and is stable. The aortic root is dilated to 4.1 cm and is stable. There is no mediastinal, hilar or axillary adenopathy. There is no pulmonary embolism . There is no suspicious lung mass or nodule. There is no airspace consolidation or abnormal interstiti al density. There is no pleural effusion or pneumothorax. Limited scanning through the upper abdomen reveals no gross abnormality. There are no focal osseous lesions. IMPRESSION: 1. Stable 4.3 cm dilatation of the descending thoracic aorta. 2. Stable 4.1 cm dilatation of the aortic root. 3. No suspicious lung mass or nodule. 4. No acute cardiopulmonary disease. [facility], , 05/09/2025 3:01 PM
== END | disposition home or self-care (01) ==
LOC: RADCTMAIN 13:22
PROVIDERS: ATTEND Family Medicine
DX: I77.810 Thoracic aortic ectasia (principal); I70.0 Atherosclerosis of aorta
CPT/HCPCS: 71275; Q9967